=== PATIENT | female | born 1970 | race Caucasian/White ===

== ENCOUNTER 2016-10-16 08:51 | Emergency (ER) | payer BC ==
[~2016-10-16] VITALS: Ht 167.6 cm; Wt 85.7 kg
--- NOTE | ~2016-10-16 | CT16 ---
[facility] A Service of [facility] & [facility] / [facility] RADIOLOGY TEXT RESULTS PATIENT: DONNIE ZUÑIGA LOCATION: [facility] : 66 UNIT #: [id number] AGE: [address]: Lias Hale APRN SEX: F ORDER DR: [id number] [facility] [address] [place], [place] [address] [id number] E MR#: [id number] Acc #: [id number] NAME: DONNIE ZUÑIGA : 1970 SEX: F STUDY DATE/TIME: 10/16/2016 1109 UNIT: [facility] ROOM: STUDY DESCRIPTION: CT Angio Chest for PE Attending Physician: Lisa Hale A.P.R.N. Ordering Physician: Jj Liu M.D. Primary Care Physician: Manuela Anderson M.D. MEDICAL IMAGING REPORT This report is preliminary unless electronic signature is present EXAM CT angiogram of the chest for pulmonary embolism, 10/16/2016, 1109 hours. CLINICAL HISTORY 45 year old with a history of right-sided pulmonary embolism February 2016 after back surgery complaining of shortness of air today with chest pain with inspiration since 10/14/2016. COMPARISON CT abdomen 11/10/2015 and chest x-ray 10/16/2016. No prior chest CT for comparison. TECHNIQUE Dynamic helical CT angiographic images were obtained from the thoracic inlet through the adrenal glands. 3-D sagittal and coronal reconstructions were performed. Contrast was Isovue-370 100 mL IV. Total exam DLP 705 mGy-cm. This CT exam was performed with one or more of the following radiation dose reduction techniques: automatic exposure control, adjustment of mA and/or kV according to patient size, and iterative reconstruction. FINDINGS Images through the thoracic inlet demonstrate no thyroid lesion or adenopathy. Images through the chest demonstrate diagnostic quality opacification of the pulmonary arteries which are normal in caliber. There are no filling defects present to suggest the presence of pulmonary emboli. The aorta is also well opacified with contrast and is normal in caliber. There is no dissection. Cardiac chambers, pericardium, and esophagus are normal. There is no pathologic adenopathy. STS. [facility] A Service of [facility] & [facility] / [facility] RADIOLOGY TEXT RESULTS PATIENT: DONNIE ZUÑIGA [id number] 66 UNIT #: [id number] AGE: [address]: Lisa Hale APRN SEX: F ORDER DR: The lungs demonstrate calcified granulomata in the right lower lobe in the azygoesophageal recess and at the posterior lung base. There is no acute pulmonary density or pleural effusion. No pneumothorax. Bone window images demonstrate mild endplate spurring in the mid and lower thoracic spine. There is no fracture or bone lesion. No change from prior study. IMPRESSION 1. Negative chest CT. There is no evidence of pulmonary embolism. The aorta is normal. 2. The lungs demonstrate benign calcified granulomatous changes. There is no acute pulmonary density, pleural effusion or pneumothorax. No bone lesion or fracture seen. Dictated by... Chelsea Pickard M.D. THIS IS AN ELECTRONICALLY VERIFIED REPORT Chelsea Pickard M.D. at 10/17/2016 9:10 AM Yessy TD: 10/16/2016 17:47 JOB #: [id number] MEDICAL IMAGING REPORT Page 1 of 1 COPY
--- NOTE | ~2016-10-16 | EKG ---
PATIENT: DONNIE ZUÑIGA UNIT #: [id number] Ventricular Rate: 72 BPM Atrial Rate: 72 BPM P-R Interval: 160 ms QRS Duration: 84 ms Q-T Interval: 394 ms QTC Calculation(Bezet): 431 ms P [place]: 72 degrees Calculated R [place]: 37 degrees Calculated T [place]: 49 degrees Diagnosis Line: Normal sinus rhythm Diagnosis Line: Normal ECG Diagnosis Line: When compared with ECG of 10-NOV-2015 11:28, Diagnosis Line: No significant change was found Diagnosis Line: Confirmed by LEONIE SEXTON MD ([id number]) on 10/16/2016 Diagnosis Line: 10:12:12 PM INTERPRETING MD: CARLIE MORALES
--- NOTE | ~2016-10-16 | CR72 ---
[facility] A Service of [facility] & [facility] RADIOLOGY TEXT RESULTS PATIENT: DONNIE ZUÑIGA LOCATION: [facility] : 66 UNIT #: [id number] AGE: [address]: Lisa Hale APRN SEX: F ORDER DR: [id number] [facility] [address] [place], [place] [address] [id number] E MR#: [id number] Acc #: [id number] NAME: DONNIE ZUÑIGA : 1970 SEX: F STUDY DATE/TIME: 10/16/2016 0933 UNIT: [facility] ROOM: STUDY DESCRIPTION: CR Chest Single View Portable Attending Physician: Lisa Hale A.P.R.N. Ordering Physician: Ed Doc Bashir Liu Primary Care Physician: Manuela Anedrson M.D. MEDICAL IMAGING REPORT This report is preliminary unless electronic signature is present EXAM Chest, portable, 10/16/2016, 0933 hours. CLINICAL HISTORY 45-year-old woman with shortness of air for 2 days. History of hypertension, lupus, and recent right lung pulmonary embolism. COMPARISON 04/09/2015, chest x-ray. FINDINGS Portable upright chest demonstrates normal cardiac, mediastinal, and hilar contours. Lungs are well expanded with calcified granuloma in the right mid lung, unchanged. Lungs are clear of acute densities. There is no effusion or pneumothorax. IMPRESSION No acute cardiopulmonary findings. No change from 04/09/2015. Dictated by... Chelsea Pickard M.D. THIS IS AN ELECTRONICALLY VERIFIED REPORT Chelsea Pickard M.D. at 10/16/2016 2:29 PM ROSINA/vaughn TD: 10/16/2016 14:06 JOB #: [id number] MEDICAL IMAGING REPORT Page 1 of 1 COPY
[~2016-10-16 08:51] MED LIST: ALLERGY RELIEF10 M1 PO; AZURETTE 28 DA1 EACH PO; DICLOFENAC; FISH OIL 1,0001 CAP PO; LYRICA; MIDOL COMPLETE1 EACH PO; PANTOPRAZOLE SO40 MG PO; PHENTERMINE; REGLAN10 MG PO; REQUIP0.5 MG PO; VOLTAREN75 MG PO; ZITHROMAX; [UNRECOGNIZED DRUG - OTHER]
[2016-10-16 09:44] LABS: BASOPHIL% 0.6 % (0-2.5); DIFF IND NO; EOSINOPHIL# 0.1 X10e3 (0-0.7); EOSINOPHIL% 1.5 % (0.0-7.0); HEMATOCRIT 40.7 % (35.0-45.0); HEMOGLOBIN 13.7 gm/dL (12.0-16.0); LYMPHOCYTE# 1.7 X10e3 (1.0-3.5); MEAN CELL VOLUME 86.5 FL (83-96); MEAN CORPUSCULAR HEMOGLOBIN 29.1 PG (28-34); MEAN CORPUSCULAR HGB CONC 33.6 g/dL (30-36); MEAN PLATELET VOLUME 8.3 FL (6.5-11.5); MONOCYTE# 0.3 X10e3 (0-1.0); MONOCYTE% 4.8 % (3.0-12.0); NEUTROPHIL# 3.6 X10e3 (1.5-7.1); NEUTROPHIL% 63.1 % (40-75); PLATELET COUNT 212 X10e3 (140-420); RED CELL DISTRIBUTION WIDTH 16.3 % (11.0-15.5); WHITE BLOOD COUNT 5.7 X10e3 (4.0-10.5)
[2016-10-16 09:56] LABS: PROTHROMBIN TIME (PATIENT) 10.5 SECONDS (10.0-11.7)
[2016-10-16 09:59] LABS: POC - TROPONIN <0.05 ng/mL (<=0.05)
[2016-10-16 10:12] LABS: BILIRUBIN, DIRECT 0.1 mg/dL (0.0-0.2); BILIRUBIN,INDIRECT 0.6 mg/dL (0.0-0.9); BILIRUBIN,TOTAL 0.7 mg/dL (0.2-2.0); BUN/CREATININE RATIO 14.44; CALCIUM SERUM 9.2 mg/dL (8.4-10.2); CREATININE SERUM 0.9 mg/dL (0.6-1.4); GLOM FILT RATE Estimated 76.2 mL/min (>60); POTASSIUM 3.7 mmol/L (3.5-5.1); PROTEIN TOTAL SERUM 7.8 g/dL (6.0-8.3)
[2016-10-16 11:07] LABS: POC - CKMB <1.0 ng/mL (0.0-7.9); POC - TROPONIN <0.05 ng/mL (<=0.05)
== END 2016-10-16 12:30 | disposition home or self-care (01) ==
LOC: CED 08:51
PROVIDERS: Nurse Practitioner
DX: R06.02 Shortness of breath (principal)
CPT/HCPCS: 36415; 71010; 71275; 80048; 80076; 82553; 84484; 84703; 85025; 85610; 93005; 96360; 99285; Q9967